=== PATIENT | female | born 1965 | race Caucasian/White ===

== ENCOUNTER 2021-07-18 15:29 | Emergency (ER) | payer MEDICAID ==
[~2021-07-18] VITALS: Ht 154.9 cm; Wt 68.0 kg
[2021-07-18 15:35] VITALS: BP_SYST 135
== END 2021-07-18 17:53 | disposition left against medical advice (07) ==
LOC: SED 15:29
DX: S09.90XA Unspecified injury of head, initial encounter (principal); W18.39XA Other fall on same level, initial encounter; Y93.89 Activity, other specified; Y92.89 Other specified places as the place of occurrence of the external cause; Y99.8 Other external cause status; Z53.21 Procedure and treatment not carried out due to patient leaving prior to being seen by health care provider